=== PATIENT | female | born 1975 | race Caucasian/White ===

== ENCOUNTER → 2017-02-12 | Outpatient (CLI) | payer OTHER ==
[~2017-02-12] MED LIST: ASPI1TAB PO; CALC-136 PO; IRON65TA PO; ISOVUE-370 76% 100ML VIAL (Q9967) As Ordered ONE; MIRA33504 PO; MULTCAP PO; NEXI40CA PO; PROBCAP18 PO; VITA20008 PO
--- NOTE | 2017-02-12 13:04 | REP ---
Clinical: Follow-up liver lesion. Technique: Axial portal venous phase images of the abdomen and pelvis from the lung bases to the pubic symphysis along with precontrast, arterial phase, and delayed phase images of the abdomen with coronal and sagittal re-formations. Comparison: 01/07/2016, 08/24/2015. Findings: The previously noted 14 mm hyperdense/hypervascular focus in the periphery of the medial segment left lobe of the liver is not identified on current examination. The liver is otherwise normal and unremarkable in all phases of evaluation. Spleen, pancreas, gallbladder, bilateral adrenal glands and kidneys are normal. The enteric system is without obstruction or acute inflammatory process. Normal terminal ileum and appendix are identified in the right lower quadrant. Few scattered sigmoid diverticula noted without acute diverticulitis. Pelvis demonstrates normal bladder and evidence to suggest partial hysterectomy. No ascites. No free air. No adenopathy. Vasculature is normal. Musculoskeletal structures are intact. Impression: 1. Previously identified hyperdense / hypervascular focus in the left lobe of the liver is no longer visualized. Correlation is recommended. This may have represented a transient finding. 2. Few scattered sigmoid diverticula. 3. No further abdominopelvic pathology appreciated. Signed by Hemal Meléndez MD 02/12/2017 12:55 P
== END ==
LOC: M RAD 11:45
PROVIDERS: ATTEND Physician Assistant Medical
DX: R93.3 Abnormal findings on diagnostic imaging of other parts of digestive tract (principal); K57.30 Diverticulosis of large intestine without perforation or abscess without bleeding
CPT/HCPCS: 74178; Q9967

== ENCOUNTER 2017-03-02 12:19 | Outpatient (CLI) | payer OTHER ==
[~2017-03-02] VITALS: Ht 157.5 cm; Wt 68.0 kg
[~2017-03-02 12:19] MED LIST changes: -ISOVUE-370 76% 100ML VIAL (Q9967) As Ordered ONE
[2017-03-02] MEDS ORDERED: NS 1,000 ML IV ONE (12:30)
[2017-03-02] MEDS ORDERED: PROPOFOL 500 MG/50 ML VIAL As Ordered ONE (12:50)
[2017-03-02] MEDS ORDERED: LIDOCAINE 2% INJ 100 MG/5 ML SDV (FOR ANES.) As Ordered ONE (12:52)
[2017-03-02] MEDS ORDERED: fentaNYL 100 MCG/2 ML INJECTION (J3010) As Ordered ONE (13:55)
--- NOTE | 2017-03-02 14:05 | ROOR ---
Patient Name: Sun Owens Procedure Date: 03/02/2017 1:44 PM Date of : 1975 Age: 41 Room: [facility] Gender: Female Note Status: Finalized Procedure: Upper GI endoscopy Indications: Dyspepsia, Heartburn Providers: Dario MCCLOUD MD Referring MD: ANDREAS CHANG MD Requesting Provider: Medicines: Monitored Anesthesia Care Complications: No immediate complications. Procedure: Pre-Anesthesia Assessment: - The heart rate, respiratory rate, oxygen saturations, blood pressure, adequacy of pulmonary ventilation, and response to care were monitored throughout the procedure. The Endoscope was introduced through the mouth, and advanced to the second part of duodenum. The upper GI endoscopy was accomplished without difficulty. The patient tolerated the procedure well. Findings: The esophagus was normal. The stomach was normal. The examined duodenum was normal. Impression: - Normal esophagus. - Normal stomach. - Normal examined duodenum. - No specimens collected. Recommendation: - Observe patient's clinical course. - Continue present medications. Dario Mccloud MD Dario MCCLOUD MD 03/02/2017 2:04:42 PM This report has been signed electronically. Number of Addenda: 0 Note Initiated On: 03/02/2017 1:44 PM Estimated Blood Loss: Estimated blood loss: none.
--- NOTE | 2017-03-02 14:28 | ROOR ---
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 Procedure: Pre-Anesthesia Assessment: - The heart rate, respiratory rate, oxygen saturations, blood pressure, adequacy of pulmonary ventilation, and response to care were monitored throughout the procedure. The Colonoscope was introduced through the anus and advanced to the terminal ileum, with identification of the appendiceal orifice and IC valve. The colonoscopy was performed without difficulty. The patient tolerated the procedure well. The quality of the bowel preparation was good. Findings: The perianal and digital rectal examinations were normal. (Exam: Complete, Prep: Good or Excellent.) Small Internal Hemorrhoids. The entire examined colon appeared normal on direct and retroflexion views. Impression: - (Exam: Complete, Prep: Good or Excellent.) - Small Internal Hemorrhoids. - The entire colon is normal on direct and retroflexion views. - No specimens collected. Recommendation: - Repeat colonoscopy in 1 year for screening purposes. - Yearly colonoscopy for Personal history/Genetics Christopher syndrome/HNPCC: Dario Nagel MD Dario NAGEL MD 03/02/2017 2:27:29 PM This report has been signed electronically. Number of Addenda: 0 Note Initiated On: 03/02/2017 1:47 PM Estimated Blood Loss: Estimated blood loss: none.
[2017-03-02 14:40] VITALS: BP 110/77
== END 2017-03-02 14:47 | disposition home or self-care (01) ==
LOC: M OPP 12:19
PROVIDERS: ATTEND Internal Medicine Gastroenterology
DX: Z80.0 Family history of malignant neoplasm of digestive organs (principal); K64.9 Unspecified hemorrhoids; Z85.038 Personal history of other malignant neoplasm of large intestine; R10.13 Epigastric pain; K21.9 Gastro-esophageal reflux disease without esophagitis; K58.0 Irritable bowel syndrome with diarrhea; D64.9 Anemia, unspecified; G43.909 Migraine, unspecified, not intractable, without status migrainosus; Z80.49 Family history of malignant neoplasm of other genital organs; Z85.01 Personal history of malignant neoplasm of esophagus; Z79.82 Long term (current) use of aspirin; Z79.899 Other long term (current) drug therapy
CPT/HCPCS: 43235; 45378; J3010

== ENCOUNTER 2018-05-14 08:30 | Day surgery (SDC) | payer OTHER ==
[~2018-05-14] VITALS: Ht 157.5 cm; Wt 68.9 kg
[~2018-05-14 08:30] MED LIST changes: +PROBCAP14 PO; +RANI150C PO
[2018-05-14] MEDS ORDERED: LIDOCAINE 2% INJ 100 MG/5 ML SDV (FOR ANES.) As Ordered ONE (09:51)
[2018-05-14] MEDS ORDERED: PROPOFOL 200 MG/20 ML VIAL As Ordered ONE (09:53)
[2018-05-14] MEDS ORDERED: NS 1,000 ML IV ONE (10:00)
--- NOTE | 2018-05-14 11:10 | ROOR ---
Patient Name: Sun Owens Procedure Date: 05/14/2018 10:49 AM Date of : 1975 Age: 42 Room: OP02 Gender: Female Note Status: Finalized Procedure: Colonoscopy Indications: Colon cancer screening in patient at increased risk: Family history of hereditary nonpolyposis colorectal cancer in 1st-degree relative, (Personal hx Christopher syndrome genetics. MSH6-Heterozygous) Providers: Dario NAGEL MD Referring MD: ANDREAS CHANG MD Requesting Provider: Medicines: Monitored Anesthesia Care Complications: No immediate complications. Procedure: Pre-Anesthesia Assessment: - The heart rate, respiratory rate, oxygen saturations, blood pressure, adequacy of pulmonary ventilation, and response to care were monitored throughout the procedure. The Colonoscope was introduced through the anus and advanced to the cecum, identified by appendiceal orifice and ileocecal valve. The colonoscopy was performed without difficulty. The patient tolerated the procedure well. The quality of the bowel preparation was good. Findings: The perianal and digital rectal examinations were normal. The colon (entire examined portion) was mildly redundant. The entire examined colon appeared normal on direct and retroflexion views. Impression: - Small internal hemorrhoids. - The entire colon is normal on direct and retroflexion views. - No specimens collected. Recommendation: - Repeat colonoscopy in 1 year for screening purposes. Dario Nagel MD Dario NAGEL MD 05/14/2018 11:10:04 AM This report has been signed electronically. Number of Addenda: 0 Note Initiated On: 05/14/2018 10:49 AM Estimated Blood Loss: Estimated blood loss: none.
[2018-05-14 11:35] VITALS: BP 126/84
== END 2018-05-14 11:35 | disposition home or self-care (01) ==
LOC: M OPP 08:30
PROVIDERS: ATTEND Internal Medicine Gastroenterology
DX: Z12.11 Encounter for screening for malignant neoplasm of colon (principal); Z80.0 Family history of malignant neoplasm of digestive organs; K58.9 Irritable bowel syndrome, unspecified; D64.9 Anemia, unspecified; G43.909 Migraine, unspecified, not intractable, without status migrainosus; K64.8 Other hemorrhoids; K21.9 Gastro-esophageal reflux disease without esophagitis; Z15.09 Genetic susceptibility to other malignant neoplasm; Z79.82 Long term (current) use of aspirin; Z79.899 Other long term (current) drug therapy

== ENCOUNTER 2019-06-24 11:39 | Day surgery (SDC) | payer OTHER ==
[~2019-06-24] VITALS: Ht 157.5 cm; Wt 68.9 kg
[~2019-06-24 11:39] MED LIST changes: -ASPI1TAB PO; +ASPI81TA26 PO; +GNP45TAB2 PO; +MIRA3350 PO; +NS 1,000 ML IV ONE; +VITA200038 PO
[2019-06-24] MEDS ORDERED: propofoL 200 MG/20 ML VIAL As Ordered ONE ×2 (13:19→13:49)
[2019-06-24] MEDS ORDERED: LIDOCAINE 2% INJ 100 MG/5 ML SDV (FOR ANES.) As Ordered ONE (13:19)
--- NOTE | 2019-06-24 13:35 | ROOR ---
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 Procedure: Pre-Anesthesia Assessment: - The heart rate, respiratory rate, oxygen saturations, blood pressure, adequacy of pulmonary ventilation, and response to care were monitored throughout the procedure. The Endoscope was introduced through the mouth, and advanced to the second part of duodenum. The upper GI endoscopy was accomplished without difficulty. The patient tolerated the procedure well. Findings: The esophagus was normal. The stomach was normal. Biopsies were taken with a cold forceps for Helicobacter pylori testing. The examined duodenum was normal. Prominent, but not necessarily abnormal papilla. This was biopsied with a cold forceps for histology. Impression: - Normal esophagus. - Normal stomach. Biopsied. - Normal examined duodenum. Prominent, but not necessarily abnormal papilla. Biopsied. Recommendation: - Telephone endoscopist for pathology results in 2 weeks. Dario Nagel MD Dario NAGEL MD 06/24/2019 1:34:27 PM Electronically signed by Dario NAGEL MD Number of Addenda: 0 Note Initiated On: 06/24/2019 1:20 PM Estimated Blood Loss: Estimated blood loss: none.
--- NOTE | 2019-06-24 13:52 | ROOR ---
Patient Name: Sun Owens Procedure Date: 06/24/2019 1:20 PM Date of : 1975 Age: 43 Room: [facility] Gender: Female Note Status: Finalized Procedure: Colonoscopy Indications: Christopher Syndrome Providers: Dario NAGEL MD Referring MD: ANDREAS CHANG MD Requesting Provider: Medicines: Monitored Anesthesia Care Complications: No immediate complications. Procedure: Pre-Anesthesia Assessment: - The heart rate, respiratory rate, oxygen saturations, blood pressure, adequacy of pulmonary ventilation, and response to care were monitored throughout the procedure. The Colonoscope was introduced through the anus and advanced to the terminal ileum, with identification of the appendiceal orifice and IC valve. The colonoscopy was performed without difficulty. The patient tolerated the procedure well. The quality of the bowel preparation was good. Findings: The perianal and digital rectal examinations were normal. The entire examined colon appeared normal on direct and retroflexion views. Small Internal Hemorrhoids. Impression: - The entire examined colon is normal on direct and retroflexion views. - No specimens collected. Recommendation: - Repeat colonoscopy in 1 year for screening purposes. Dario Nagel MD Dario NAGEL MD 06/24/2019 1:52:09 PM Electronically signed by Dario NAGEL MD Number of Addenda: 0 Note Initiated On: 06/24/2019 1:20 PM Estimated Blood Loss: Estimated blood loss: none.
[2019-06-24 14:37] VITALS: BP 104/70
== END 2019-06-24 14:37 | disposition home or self-care (01) ==
LOC: M OPP 11:39
PROVIDERS: ATTEND Internal Medicine Gastroenterology
DX: K64.8 Other hemorrhoids (principal); Z80.0 Family history of malignant neoplasm of digestive organs; C18.9 Malignant neoplasm of colon, unspecified; Z15.09 Genetic susceptibility to other malignant neoplasm; Z79.82 Long term (current) use of aspirin

== ENCOUNTER 2019-08-18 11:47 | Day surgery (SDC) | payer OTHER ==
[~2019-08-18] VITALS: Ht 157.5 cm; Wt 72.6 kg
[~2019-08-18 11:47] MED LIST changes: +ACETAMINOPHEN 1000MG 100ML IV BTL (OFIRMEV) (J0131 PER 10MG) As Ordered ONE; +HM V4000 PO; +KETOROLAC 60 MG/2 ML VIAL (J1885) As Ordered ONE; +LIDOCAINE 1% MDV 20ML VIAL SQ PRN; +LIDOCAINE 2% INJ 100 MG/5 ML SDV (FOR ANES.) As Ordered ONE; +LR 1,000 ML IV ONE; +MIDAZOLAM INJ 2 MG/2 ML VIAL (J2250) As Ordered ONE; -NS 1,000 ML IV ONE; +ONDANSETRON 4MG/2ML VIAL (J2405) As Ordered ONE; +PHENYLephrine HCL 500 MCG/5 ML (100MCG/ML) SYRINGE (J2370) As Ordered ONE; +ROCURONIUM BROMIDE 50 MG/5 ML VIAL As Ordered ONE; +SUGAMMADEX SODIUM 500 MG/5 ML VIAL (BRIDION) As Ordered ONE; +dexameTHASONE 4 MG/ML 1ML VIAL (J1100) As Ordered ONE; +ePHEDrine SULFATE 25 MG/5 ML(5MG/ML) SYRINGE As Ordered ONE; +fentaNYL 100 MCG/2 ML INJECTION (J3010) As Ordered ONE; +propofoL 200 MG/20 ML VIAL As Ordered ONE
[2019-08-18 12:23] LABS: HEMATOCRIT 39.7 % (36.0-47.0); HEMOGLOBIN 13.6 g/dl (12.0-15.5); MEAN CORPUSCULAR HEMOGLOBIN 32.4 pg (27.0-33.0); MEAN CORPUSCULAR HGB CONC 34.3 g/dl (32.0-36.5); MEAN CORPUSCULAR VOLUME 94.5 fl (80.0-96.0); PLATELET COUNT, AUTOMATED 209 10^3/uL (150-450); WHITE BLOOD COUNT 5.8 10^3/uL (4.0-10.0)
[2019-08-18] MEDS ORDERED: oxyCODONE 5MG TAB PO PRN (17:15)
[2019-08-18] MEDS ORDERED: LR 1,000 ML IV SCH ×2 (17:15)
[2019-08-18] MEDS ORDERED: fentaNYL 100 MCG/2 ML INJECTION (J3010) IV PRN (17:15)
[2019-08-18] MEDS ORDERED: IBUPROFEN 600 MG TAB PO PRN (17:15)
[2019-08-18] MEDS ORDERED: ONDANSETRON 4MG/2ML VIAL (J2405) IV PRN (17:15)
[2019-08-18] MEDS ORDERED: NORCO, ANEXSIA 5/325MG TABLET (HYDROcodone/ACETAMINOPHEN) PO PRN (17:15)
[2019-08-18 17:50] VITALS: BP 117/71
--- NOTE | 2019-08-18 20:44 | RO ---
DATE OF PROCEDURE: 08/18/2019 PREOPERATIVE DIAGNOSIS: History of Christopher syndrome with confirmed genetics per patient. POSTOPERATIVE DIAGNOSIS: History of Christopher syndrome with confirmed genetics per patient. There is also scar versus implant noted. PROCEDURE: Bilateral oophorectomy laparoscopically. There is no outright portions of the tubes left, but there was either scar from that or implant present, and that was on the mesentery of the bowel as noted in the operative pictures and this was taken off and removed. SURGEON: Patti Del Real MD HAIR MACHINE OPERATOR: None. ANESTHESIA: General endotracheal anesthesia. DESCRIPTION OF PROCEDURE: Sun was brought to the operating room where sufficient general endotracheal anesthesia was induced, and she was prepped, draped and positioned in the usual sterile fashion with a Carpio with the ability to backfill and a sponge on stick placed, the sponge on the stick, of course, in the vagina and the Carpio in the bladder. Then, attention was turned to the abdomen. A transverse semilunar incision was made below the umbilicus. Sharp and blunt dissection were continued through the subcutaneous tissues to the level of the rectus fascia where a transverse incision was made after the fascia was grasped with Ca clamps and elevated. And with the transverse incision made, and the fascia clearly identified, #0 Vicryl retention sutures were placed in the fascia superiorly, inferiorly and held with hemostats. Using the S retractors and direct visualization, the peritoneal cavity was entered, following which the Albino cannula was placed under direct visualization in an open laparoscopic technique and then secured in place with the #0 Vicryl retention sutures. CO2 insufflation was then begun. After adequate CO2 insufflation, the peritoneal cavity was visualized. There were normal shiny peritoneal surfaces throughout. There was no excrescence, ascites, nor exudate. As noted in the operative photos, we saw normal upper abdomen, normal lower abdomen, and with Trendelenburg and manipulation, we were able to see both ovaries and manipulate them. There did not appear to be any obvious tubal remnants. There was some scarring versus implant on the left side, or maybe even a fecalith in the mesentery of the bowel. One portion of this that looks a bit filmy in the photos from the OR was just pulled off with the grasper, and it is part of the pathologic specimen. The other part was carefully cut off and removed; because with this family history, we did not want to leave any questionable things behind. But I did not see anything that was diagnostically obvious in regard to those things. I also did not see any tubes to remove, but, of course, the ovaries were present and a 5 mm port was put in the right lower quadrant. And using the operative port on the scope, and then the right lower quadrant port, and a #45 Enseal, we were able to elevate first the left ovary and its pedicle and carefully cauterize and transect its pedicle, and then the right ovary, again cauterizing the infundibulopelvic well back and making sure to not just skim the ovary but to come back off the ovary and remove it in the way we would with this family history. Having freed both ovaries and placement in the pelvis, as noted in the operative photos, we then went back to this implant on the mesentery to bowel. And we went ahead and elevated this area using a grasper through the scope and then used cold scissors without cautery to just very carefully dissect it free of the peritoneum. There was an obvious plane. I actually think the one is a fecalith and the other I think is scar tissue from her previous surgery. But the more solid item was dissected free first and placed in the pelvis, and then we left the sort of filmy-looking thing, which looked like just scar tissue, in place. At this point, we went ahead and switched out for the 5 mm camera, so that we could place it in the 5 mm right lower quadrant port. And then used the Endo Catch bag through the umbilical port to come down and scoop up both ovaries and the scar fecalith implant item that has already been photographed, and we put them all into a bag, and we brought that Endo Catch bag up through the umbilical port and removed them without popping anything through the umbilical port. We then went back with a grasper on camera and grasped the other area of possible scar tissue or what not, and when we grasped it, it just pulled right off, and we were able to send that with the pathology as well. Certainly by texture it seems more scar tissue like. There was no undue bleeding in these areas, so we did not need to cauterize in the mesentery or do anything that appeared to have a risk of injuring the bowel or its blood supply. And we could easily confirm that our pedicles were dry, and we did not have any evidence of injury to bowel, ureters or bladder and so the procedure was then ended with the CO2 allowed to escape the abdomen. Patient, of course, removed from Trendelenburg. The instruments removed from both ports. And the fascial wound at the umbilicus was closed with the #0 Vicryl retention sutures, the skin was closed with #3-0 Vicryl subcuticular stitch, and the skin at the 5 mm port was also closed with #3-0 Vicryl in a subcuticular stitch and dry sterile dressings were then applied. Estimated blood loss for the procedure: About 5 mL. Fluid replacement was crystalloid. Complications: None. Condition and Disposition: Sun tolerated the procedure well and was recovering in the recovery room in good condition.
== END 2019-08-18 17:52 | disposition home or self-care (01) ==
LOC: M SDC 11:47
PROVIDERS: ATTEND Obstetrics & Gynecology
DX: N83.10 Corpus luteum cyst of ovary, unspecified side (principal); Z15.09 Genetic susceptibility to other malignant neoplasm; K21.9 Gastro-esophageal reflux disease without esophagitis; K58.9 Irritable bowel syndrome, unspecified; G43.909 Migraine, unspecified, not intractable, without status migrainosus; Z86.2 Personal history of diseases of the blood and blood-forming organs and certain disorders involving the immune mechanism; Z79.899 Other long term (current) drug therapy; Z79.82 Long term (current) use of aspirin
CPT/HCPCS: 36415; 58661; 85027; 88305; J0131; J1100; J1885; J2250; J2370; J2405; J3010

== ENCOUNTER → 2020-02-07 | Outpatient (CLI) | payer OTHER ==
[~2020-02-07] MED LIST changes: -ACETAMINOPHEN 1000MG 100ML IV BTL (OFIRMEV) (J0131 PER 10MG) As Ordered ONE; +D31000TA2 PO; +E-Z-GAS II EFFERVESCENT PACKET (SODIUM BICARB./CITRIC ACID/SIMETHICONE) As Ordered ONE; +E-Z-HD 98% w/w 340GM SUSP BTL As Ordered ONE; +E-Z-PAQUE 96% w/w SUSP 176GM BTL As Ordered ONE; +ESTR625TA PO; +FAMO1TAB25 PO; +IRON65TA2 PO; -KETOROLAC 60 MG/2 ML VIAL (J1885) As Ordered ONE; -LIDOCAINE 1% MDV 20ML VIAL SQ PRN; -LIDOCAINE 2% INJ 100 MG/5 ML SDV (FOR ANES.) As Ordered ONE; -LR 1,000 ML IV ONE; -MIDAZOLAM INJ 2 MG/2 ML VIAL (J2250) As Ordered ONE; -ONDANSETRON 4MG/2ML VIAL (J2405) As Ordered ONE; -PHENYLephrine HCL 500 MCG/5 ML (100MCG/ML) SYRINGE (J2370) As Ordered ONE; -ROCURONIUM BROMIDE 50 MG/5 ML VIAL As Ordered ONE; -SUGAMMADEX SODIUM 500 MG/5 ML VIAL (BRIDION) As Ordered ONE; -dexameTHASONE 4 MG/ML 1ML VIAL (J1100) As Ordered ONE; -ePHEDrine SULFATE 25 MG/5 ML(5MG/ML) SYRINGE As Ordered ONE; -fentaNYL 100 MCG/2 ML INJECTION (J3010) As Ordered ONE; -propofoL 200 MG/20 ML VIAL As Ordered ONE
--- NOTE | 2020-03-07 10:07 | REP ---
ESOPHAGRAM AIR CONTRAST The procedure was performed under the direct supervision of Dr. Harvey. The images were reviewed with Dr. Harvey. A single view PA chest x-ray is submitted as a pathology lab technician film. There is no change compared to a previous chest x-ray performed on 09/25/2010. Liquid barium and gas-producing granules were given in the erect position, as well as liquid barium in the prone oblique positions in order to perform a double-contrast esophagram examination. The oral and pharyngeal stages of deglutition are unremarkable. The right vallecula is irregular. Recommend direct visualization or CT of the neck with IV contrast. Esophageal transport is prompt and efficient, and there is no esophagitis, stricture, mucosal ring, or hiatal hernia. Gastroesophageal reflux is not demonstrated on this examination. IMPRESSION: There is irregularity of the right vallecula. Recommend direct visualization or CT of the neck with IV contrast. [facility]
== END ==
LOC: M RAD 08:00
PROVIDERS: ATTEND Physician Assistant Medical
DX: R13.10 Dysphagia, unspecified (principal); K21.9 Gastro-esophageal reflux disease without esophagitis

== ENCOUNTER → 2020-02-09 | Outpatient (CLI) | payer OTHER ==
[~2020-02-09] MED LIST changes: -E-Z-GAS II EFFERVESCENT PACKET (SODIUM BICARB./CITRIC ACID/SIMETHICONE) As Ordered ONE; -E-Z-HD 98% w/w 340GM SUSP BTL As Ordered ONE; -E-Z-PAQUE 96% w/w SUSP 176GM BTL As Ordered ONE
--- NOTE | 2020-03-07 10:05 | REP ---
RIGHT ANKLE SERIES: CLINICAL: Nontraumatic pain. TECHNIQUE: AP, lateral, bilateral oblique views of the right ankle. FINDINGS: A 1 cm well-corticated bony fragment is identified adjacent to the lateral malleolus and likely represents old injury. No acute fracture or dislocation. The ankle mortise appears intact. Surrounding soft tissues are normal. IMPRESSION: No obvious acute pathology. MTDD
== END ==
LOC: M ADAMS 08:30
PROVIDERS: ATTEND Physician Assistant
DX: M25.571 Pain in right ankle and joints of right foot (principal)

== ENCOUNTER → 2020-04-14 | Outpatient (CLI) | payer OTHER ==
[~2020-04-14] MED LIST changes: -D31000TA2 PO; -ESTR625TA PO; -FAMO1TAB25 PO; -IRON65TA2 PO
== END ==
LOC: M LABSMTC 11:47
PROVIDERS: ATTEND Anesthesiology
DX: Z01.818 Encounter for other preprocedural examination (principal); Z20.828 Contact with and (suspected) exposure to other viral communicable diseases
CPT/HCPCS: C9803; U0003

== ENCOUNTER 2020-04-19 09:07 | Day surgery (SDC) | payer OTHER ==
[~2020-04-19] VITALS: Ht 157.5 cm; Wt 72.6 kg
[~2020-04-19 09:07] MED LIST changes: +D31000TA2 PO; +ESTR625TA PO; +FAMO1TAB25 PO; +IRON65TA2 PO; +LIDOCAINE 2% 100MG/5ML SDV (FOR ANES.) As Ordered ONE; +LR 1,000 ML IV ONE; +MIDAZOLAM INJ 2MG/2ML VIAL (J2250 PER 1MG) As Ordered ONE; +ONDANSETRON 4MG/2ML VIAL As Ordered ONE; +ROCURONIUM BROMIDE 50 MG/5 ML VIAL As Ordered ONE; +SUGAMMADEX SODIUM 500 MG/5 ML VIAL (BRIDION) As Ordered ONE; +dexameTHASONE 4 MG/ML 1ML VIAL (J1100 PER 1MG) As Ordered ONE; +dexameTHASONE 4 MG/ML 1ML VIAL (J1100 PER 1MG) IV ONE; +fentaNYL 100 MCG/2 ML INJECTION (J3010) As Ordered ONE; +propofoL 200 MG/20 ML VIAL As Ordered ONE
[2020-04-19] MEDS ORDERED: METHYLENE BLUE 0.5% (5MG/ML) 10 ML AMP (PROVAYBLUE) As Ordered ONE ×2 (11:28→12:01)
[2020-04-19] MEDS ORDERED: LIDOCAINE W/EPINEPHRINE 1% 20ML VIAL As Ordered ONE (11:28)
[2020-04-19] MEDS ORDERED: OXYMETAZOLINE 0.05% NASAL SPRAY (AFRIN) As Ordered ONE (11:29)
[2020-04-19] MEDS ORDERED: SCOPOLAMINE 1MG TRANSDERMAL PATCH TOP ONE (11:45)
[2020-04-19] MEDS ORDERED: dexameTHASONE 4 MG/ML 1ML VIAL (J1100 PER 1MG) As Ordered ONE (12:24)
[2020-04-19] MEDS ORDERED: EPINEPHrine 1MG/ML INJ 30ML MD-VIAL As Ordered ONE (12:31)
[2020-04-19] MEDS ORDERED: fentaNYL 100 MCG/2 ML INJECTION (J3010) IV PRN (13:30)
[2020-04-19] MEDS ORDERED: ONDANSETRON 4MG/2ML VIAL IV PRN (13:30)
[2020-04-19] MEDS ORDERED: LR 1,000 ML IV SCH (13:45)
[2020-04-19 13:55] VITALS: BP 141/82
--- NOTE | 2020-04-20 14:21 | RO ---
DATE OF OPERATION: 04/19/2020 PREOPERATIVE DIAGNOSIS: Swelling of the left vallecula. POSTOPERATIVE DIAGNOSIS: Swelling of the left vallecula. PROCEDURE PERFORMED: Direct suspension microlaryngoscopy with biopsy of the left vallecula. SURGEON: Andrés Russo MD ANESTHESIA: General. CLINICAL PREAMBLE: This 44-year-old man with history of Christopher syndrome with complaint of a foreign body sensation in the left throat area. A CT scan of the neck showed evidence of possible fullness in the left vallecula. Management options including the surgery risks had been discussed. The patient understood and consented to the procedure. DESCRIPTION OF PROCEDURE: Patient was identified in preoperative holding and brought to the operating room in stable condition. In supine position on the operating table, patient received general anesthesia followed by orotracheal intubation without incident. Patient was prepped and draped in the usual fashion for the procedure. Primary palpation of the oral cavity, base of tongue, oral tongue, lateral and posterior pharyngeal burns showed no discrete mass lesion. The dentition was protected using a mouth guard. Using the Dedo-Pilling laryngoscope, inspection of the mucosa of the oral cavity, oropharynx, supraglottis, larynx and hypopharynx was carried out. No gross ulceration or maceration noted. The Dedo-Pilling laryngoscope was then suspended in a position to afford visualization of the left vallecula. Biopsy was then performed using upbiting forceps at the left vallecula. Hemostasis was achieved using pledgets with 1:100,000 epinephrine there. At the end, sponge and instruments counts were correct. No complication was encounter. Estimated blood loss was less than 1mL. General anesthesia was reversed and the patient was extubated andbrought to the recovery room in satisfactory condition. [facility]
== END 2020-04-19 14:14 | disposition home or self-care (01) ==
LOC: M SDC 09:07
PROVIDERS: ATTEND Otolaryngology
DX: K13.79 Other lesions of oral mucosa (principal); K21.9 Gastro-esophageal reflux disease without esophagitis; K58.8 Other irritable bowel syndrome; G43.909 Migraine, unspecified, not intractable, without status migrainosus; Z79.82 Long term (current) use of aspirin; Z79.899 Other long term (current) drug therapy; Z15.09 Genetic susceptibility to other malignant neoplasm
CPT/HCPCS: 31536; 88305; J1100; J2250; J2405; J3010; Q9968

== ENCOUNTER → 2020-06-25 | Outpatient (CLI) | payer OTHER ==
[~2020-06-25] MED LIST changes: +ISOVUE-370 76% 100ML VIAL As Ordered ONE; -LIDOCAINE 2% 100MG/5ML SDV (FOR ANES.) As Ordered ONE; -LR 1,000 ML IV ONE; -MIDAZOLAM INJ 2MG/2ML VIAL (J2250 PER 1MG) As Ordered ONE; -ONDANSETRON 4MG/2ML VIAL As Ordered ONE; -ROCURONIUM BROMIDE 50 MG/5 ML VIAL As Ordered ONE; -SUGAMMADEX SODIUM 500 MG/5 ML VIAL (BRIDION) As Ordered ONE; -dexameTHASONE 4 MG/ML 1ML VIAL (J1100 PER 1MG) As Ordered ONE; -dexameTHASONE 4 MG/ML 1ML VIAL (J1100 PER 1MG) IV ONE; -fentaNYL 100 MCG/2 ML INJECTION (J3010) As Ordered ONE; -propofoL 200 MG/20 ML VIAL As Ordered ONE
--- NOTE | 2020-06-26 08:14 | REP ---
INDICATION: SWELLING MASS LUMP IN NECK LT. According to history provided from previous exam, there is also history of Christopher syndrome. COMPARISON: Comparison soft tissue neck CT study March 15, 2020. Comparison is made with the [facility] g images from February 07, 2020.. TECHNIQUE: Helical scanning is acquired following the intravenous injection of 75 mL of Isovue 370. 3 mm axial images are re-formatted. Coronal and sagittal MPR images are provided. FINDINGS: The esophagram reported irregularity of the right vallecular. The prior soft tissue neck CT study reported some irregularity in the left vallecular. Today's preliminary digital derrick worker radiographs are unremarkable. Epiglottis is normal in appearance. Aryepiglottic folds appear normal. Glottic and supraglottic larynx and the subglottic airway appear unremarkable. There are mild degenerative disc changes in the cervical spine. On axial CT images no abnormality is noted in the pharynx or hypopharynx. No significant soft tissue density is seen in either vallecular. Retinoid cartilages are normal and symmetric. Aryepiglottic folds are symmetric. Epiglottis is unremarkable. Glottic and subglottic airways intact. Tonsillar and peritonsillar soft tissues are unremarkable. Thyroid lobes are normal and symmetric. Submandibular and parotid glands are normal and symmetric. No vascular abnormality is appreciated. Retropharyngeal soft tissues are unremarkable. No mass or adenopathy. No bony destructive lesion is seen. Degenerative disc disease is most pronounced 3 at C5-6 where there is some posterior osteophytic ridging. Similar less pronounced changes are noted at C6-C7. The visualized paranasal sinuses are clear. No intraorbital abnormality is seen. The visualized intracranial structures are unremarkable. IMPRESSION: Degenerative disc disease changes in the cervical spine. Otherwise negative soft tissue neck CT study. No evidence of mass or adenopathy. <Electronically signed by Michael Antonio > 06/26/20 [id number]
== END ==
LOC: M RAD 18:05
PROVIDERS: ATTEND Otolaryngology
DX: M50.30 Other cervical disc degeneration, unspecified cervical region (principal); R22.1 Localized swelling, mass and lump, neck
CPT/HCPCS: 70491; Q9967

== ENCOUNTER → 2020-08-30 | Outpatient (CLI) | payer OTHER ==
[~2020-08-30] MED LIST changes: -ISOVUE-370 76% 100ML VIAL As Ordered ONE; +PROB250C PO; +VITMTA PO
== END ==
LOC: M LABSMTC 10:43
PROVIDERS: ATTEND Anesthesiology
DX: Z01.812 Encounter for preprocedural laboratory examination (principal)

== ENCOUNTER 2020-09-04 11:41 | Day surgery (SDC) | payer OTHER ==
[~2020-09-04] VITALS: Ht 157.5 cm; Wt 75.7 kg
[~2020-09-04 11:41] MED LIST changes: +NS 1,000 ML IV ONE
[2020-09-04] MEDS ORDERED: propofoL 500 MG/50 ML VIAL As Ordered ONE (13:24)
[2020-09-04] MEDS ORDERED: LIDOCAINE 2% 100MG/5ML SDV (FOR ANES.) As Ordered ONE (13:25)
[2020-09-04] MEDS ORDERED: fentaNYL 100 MCG/2 ML INJECTION (J3010) As Ordered ONE (13:25)
--- NOTE | 2020-09-04 13:37 | ROOR ---
Patient Name: Sun Owens Procedure Date: 09/04/2020 1:25 PM Date of : 1975 Age: 44 Room: [facility] Gender: Female Note Status: Finalized Procedure: Upper GI endoscopy Indications: Hereditary nonpolyposis colorectal cancer (Christopher Syndrome) Providers: Dario NAGEL MD Referring MD: ANDREAS CHANG MD Requesting Provider: Medicines: Monitored Anesthesia Care Complications: No immediate complications. Procedure: Pre-Anesthesia Assessment: - The heart rate, respiratory rate, oxygen saturations, blood pressure, adequacy of pulmonary ventilation, and response to care were monitored throughout the procedure. The Endoscope was introduced through the mouth, and advanced to the second part of duodenum. The upper GI endoscopy was accomplished without difficulty. The patient tolerated the procedure well. Findings: The esophagus was normal. The stomach was normal. The examined duodenum was normal. Impression: - Normal esophagus. - Normal stomach. - Normal examined duodenum. - No specimens collected. Recommendation: - Repeat upper endoscopy in 1-2 years for surveillance. Procedure Code(s): --- Professional --- 31612, Esophagogastroduodenoscopy, flexible, transoral; diagnostic, including collection of specimen(s) by brushing or washing, when performed (separate procedure) Diagnosis Code(s): --- Professional --- C18.9, Malignant neoplasm of colon, unspecified Z15.09, Genetic susceptibility to other malignant neoplasm CPT copyright 2019 [employer]. All rights reserved. The codes documented in this report are preliminary and upon environmental conservation officer review may be revised to meet current compliance requirements. Dario Nagel MD Dario NAGLE MD 09/04/2020 1:36:49 PM Electronically signed by Dario NAGEL MD Number of Addenda: 0 Note Initiated On: 09/04/2020 1:25 PM Estimated Blood Loss: Estimated blood loss: none.
--- NOTE | 2020-09-04 13:50 | ROOR ---
Patient Name: Sun Owens Procedure Date: 09/04/2020 1:26 PM Date of : 1975 Age: 44 Room: [facility] Gender: Female Note Status: Finalized Procedure: Colonoscopy Indications: Christopher Syndrome Providers: Dario NAGEL MD Referring MD: ANDREAS CHANG MD Requesting Provider: Medicines: Monitored Anesthesia Care Complications: No immediate complications. Procedure: Pre-Anesthesia Assessment: - The heart rate, respiratory rate, oxygen saturations, blood pressure, adequacy of pulmonary ventilation, and response to care were monitored throughout the procedure. The Colonoscope was introduced through the anus and advanced to the terminal ileum, with identification of the appendiceal orifice and IC valve. The colonoscopy was performed without difficulty. The patient tolerated the procedure well. The quality of the bowel preparation was good. Findings: Skin tags were found on perianal exam. Mild sigmoid diverticulosis and small internal hemorrhoids. The entire examined colon appeared normal on direct and retroflexion views. Impression: - Perianal skin tags found on perianal exam. - Mild sigmoid diverticulosis and small internal hemorrhoids. - The entire examined colon is normal on direct and retroflexion views. - No specimens collected. Recommendation: - Repeat colonoscopy in 1 year for screening purposes. 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 All rights reserved. The codes documented in this report are preliminary and upon pre coder review may be revised to meet current compliance requirements. Dario Nagel MD Dario NAGEL MD 09/04/2020 1:49:44 PM Electronically signed by Dario NAGEL MD Number of Addenda: 0 Note Initiated On: 09/04/2020 1:26 PM Estimated Blood Loss: Estimated blood loss: none.
[2020-09-04 14:11] VITALS: BP 99/60
== END 2020-09-04 14:12 | disposition home or self-care (01) ==
LOC: M OPP 11:41
PROVIDERS: ATTEND Internal Medicine Gastroenterology
DX: K57.30 Diverticulosis of large intestine without perforation or abscess without bleeding (principal); Z15.09 Genetic susceptibility to other malignant neoplasm; K64.4 Residual hemorrhoidal skin tags; Z79.82 Long term (current) use of aspirin; Z79.899 Other long term (current) drug therapy; Z80.0 Family history of malignant neoplasm of digestive organs
CPT/HCPCS: 43235; 45378; J3010

== ENCOUNTER → 2021-09-23 | Outpatient (CLI) | payer OTHER ==
[~2021-09-23] MED LIST changes: -D31000TA2 PO; +FAMO10TA50 PO; -FAMO1TAB25 PO; +HEAL1TAB6 PO; -NS 1,000 ML IV ONE; +VITA100093 PO
== END ==
LOC: M LABSMTC 10:50
PROVIDERS: ATTEND Anesthesiology
DX: Z01.818 Encounter for other preprocedural examination (principal); Z11.52 Encounter for screening for COVID-19

== ENCOUNTER 2022-09-12 08:17 | Day surgery (SDC) | payer OTHER ==
[~2022-09-12] VITALS: Ht 157.5 cm; Wt 80.6 kg
[~2022-09-12 08:17] MED LIST changes: +NS 1,000 ML IV ONE
[2022-09-12] MEDS ORDERED: propofoL 200 MG/20 ML VIAL As Ordered ONE (08:39)
[2022-09-12] MEDS ORDERED: LIDOCAINE 2% 100MG/5ML SDV (FOR ANES.) As Ordered ONE (08:39)
[2022-09-12 10:20] VITALS: BP 123/75
== END 2022-09-12 10:20 | disposition home or self-care (01) ==
LOC: M OPP 08:17
PROVIDERS: ATTEND Internal Medicine Gastroenterology
DX: D12.8 Benign neoplasm of rectum (principal); K57.30 Diverticulosis of large intestine without perforation or abscess without bleeding; Z15.09 Genetic susceptibility to other malignant neoplasm

== ENCOUNTER 2023-12-17 09:00 | Day surgery (SDC) | payer OTHER ==
[~2023-12-17] VITALS: Ht 157.5 cm; Wt 79.8 kg
[~2023-12-17 09:00] MED LIST changes: +CALC500T68 PO; +THERTAB52 PO
[2023-12-17] MEDS ORDERED: propofoL 500 MG/50 ML VIAL As Ordered ONE (10:27)
[2023-12-17] MEDS ORDERED: fentaNYL 100 MCG/2 ML INJECTION As Ordered ONE (10:29)
[2023-12-17] MEDS ORDERED: LIDOCAINE 2% 100MG/5ML SDV (FOR ANES.) As Ordered ONE (10:30)
[2023-12-17 12:23] VITALS: TEMP 98
[2023-12-17 12:40] VITALS: BP 99/58; O2SAT 99
== END 2023-12-17 12:47 | disposition home or self-care (01) ==
LOC: M OPP 09:00
PROVIDERS: ATTEND Internal Medicine Gastroenterology
DX: K64.8 Other hemorrhoids (principal); K57.30 Diverticulosis of large intestine without perforation or abscess without bleeding; Z86.010 Personal history of colon polyps; Z15.09 Genetic susceptibility to other malignant neoplasm; Z79.1 Long term (current) use of non-steroidal anti-inflammatories (NSAID); Z79.82 Long term (current) use of aspirin; Z79.810 Long term (current) use of selective estrogen receptor modulators (SERMs)
CPT/HCPCS: 43235; 45378; J3010

== ENCOUNTER 2025-03-16 08:17 | Day surgery (SDC) | payer OTHER ==
[~2025-03-16] VITALS: Ht 157.5 cm; Wt 77.7 kg
[~2025-03-16 08:17] MED LIST changes: +CVS-161 PO; -NS 1,000 ML IV ONE
[2025-03-16] MEDS ORDERED: LIDOCAINE 2% 100 MG/5 ML SDV (FOR ANES.) As Ordered ONE (09:01)
[2025-03-16 10:03] VITALS: TEMP 96.7
[2025-03-16 10:33] VITALS: BP 117/78; O2SAT 98
== END 2025-03-16 10:32 | disposition home or self-care (01) ==
LOC: M OPP 08:17
PROVIDERS: ATTEND Internal Medicine Gastroenterology
DX: K57.30 Diverticulosis of large intestine without perforation or abscess without bleeding (principal); K64.8 Other hemorrhoids; Z15.09 Genetic susceptibility to other malignant neoplasm; Z79.82 Long term (current) use of aspirin; Z79.899 Other long term (current) drug therapy
CPT/HCPCS: 43235; 45378; J3010

== ENCOUNTER → 2025-03-27 | Outpatient (CLI) | payer OTHER | LOC: M RAD 06:39 | PROVIDERS: ATTEND Internal Medicine Gastroenterology | DX: R07.9 Chest pain, unspecified (principal); R10.13 Epigastric pain ==